=== PATIENT | male | born 1965 | race Caucasian/White ===

== ENCOUNTER 2021-11-08 23:05 | Inpatient (IN) | payer BC ==
[2021-11-08 23:32] LABS: #Lymphocytes 1.3 thou/uL (1.20-3.40); #Monocytes 0.7 thou/uL (0.11-0.59); #Neutrophils 5.9 thou/uL (1.40-6.50); %Eosinophils 0.2 % (0.0-10.0); %Lymphocytes 16.4 % (21.0-51.0); %Monocytes 8.9 % (0.0-10.0); %Neutrophils 74.5 % (42.0-75.0); Hemoglobin 17.7 g/dL (14.0-18.0); Mean Corpuscular HGB CONC 35.7 g/dL (32.0-36.0); Mean Corpuscular Hemoglobin 31.4 pg (27.0-31.0); Mean Corpuscular Volume 87.8 fL (78.0-98.0); Mean Platelet Volume 6.9 fL (7.4-10.4); Platelet Count 185 thou/uL (130-400); RBC Distribution Width 11.9 % (11.5-14.5); Red Blood Cell (RBC) Count 5.63 mill/uL (4.70-6.10)
[2021-11-08] MEDS ORDERED: Adenosine 6 MG/2 ML VIAL ONE (23:46)
[2021-11-08] MEDS ORDERED: Metoprolol Tartrate 25 MG TAB ONE (23:54)
[2021-11-08 23:57] LABS: ALT (SGPT) 21 U/L (8-55); AST (SGOT) 21 U/L (5-34); Albumin 4.6 g/dL (3.5-5.0); Alkaline Phosphatase 73 U/L (40-110); Anion Gap 14 mmol/L (10-20); BUN (Urea Nitrogen) 19 mg/dL (8.4-25.7); Bilirubin, Total 0.7 mg/dL (0.2-1.2); Calc. Creatinine Clearance 0 mL/min (70-130); Calcium 10.2 mg/dL (7.8-10.44); Carbon Dioxide 22 mmol/L (22-29); Chloride 108 mmol/L (98-107); Globulin 3.2 g/dL (2.4-3.5); Glucose 142 mg/dL (70-105); Lipase 28 U/L (8-78); Magnesium 2.4 mg/dL (1.6-2.6); Potassium 3.9 mmol/L (3.5-5.1); Protein, Total 7.8 g/dL (6.0-8.3); Sodium 140 mmol/L (136-145)
[2021-11-09 00:18] LABS: CKMB 1.8 ng/mL (0-6.6)
[2021-11-09] MEDS ORDERED: Aspirin Chewable 81 MG TAB ONE (00:22)
[2021-11-09 01:13] LABS: SARS-CoV-2 NAA Rapid Test Not Detected (NotDetected)
[2021-11-09] MEDS ORDERED: Acetaminophen 325 MG TAB PO PRN ×2 (02:00→05:14)
[2021-11-09] MEDS ORDERED: Dextrose 5 % And 0.9 % NaCl 1,000 ML IV SCH (02:00)
[2021-11-09 03:19] LABS: Troponin I 0.354 ng/mL (< 0.028)
[2021-11-09] MEDS ORDERED: Ondansetron PF 4 MG/2 ML Vial IVP PRN (05:14)
[2021-11-09] MEDS: Sodium Chloride 0.9% 1,000 ML IV SCH ×2 (05:41→18:38)
[2021-11-09] MEDS ORDERED: Enoxaparin Sodium 100 MG/ML SYRINGE SC SCH (05:45)
[2021-11-09 06:15] LABS: Lactic Acid 0.7 mmol/L (0.5-2.2)
[2021-11-09 06:25] LABS: Bacteria/HPF None Seen HPF (None Seen); Bilirubin Negative (Negative); Blood, Urine Negative (Negative); Clarity Clear (Clear); Glucose, Urine (Dipstick) Normal (Negative); Ketone, Urine Negative (Negative); Leukocyte Negative Leu/uL (Negative); Nitrite Negative (Negative); Protein, Urine (Dipstick) Negative (Neg-Trace); RBC/HPF 0-3 HPF (0-3); Specific Gravity, Urine 1.025 (1.002-1.036); Squamous Epithelial None Seen HPF (0-3); Urobilinogen Normal mg/dL (Less than 2); WBC/HPF 0-3 HPF (0-3); pH, Urine 5.5 (5.0-9.0)
[2021-11-09 06:30] LABS: Urine Culture Reflex No No
[2021-11-09 06:46] LABS: Troponin I 0.414 ng/mL (< 0.028)
[2021-11-09] MEDS ORDERED: Enoxaparin Sodium 40 MG/0.4 ML SYRINGE SC SCH (09:00)
[2021-11-09 10:59] LABS: Anion Gap 12 mmol/L (10-20); BUN (Urea Nitrogen) 14 mg/dL (8.4-25.7); Calc. Creatinine Clearance 119 mL/min (70-130); Calcium 8.9 mg/dL (7.8-10.44); Carbon Dioxide 24 mmol/L (22-29); Chloride 108 mmol/L (98-107); Glucose 90 mg/dL (70-105); Sodium 140 mmol/L (136-145)
[2021-11-09 11:07] LABS: Critical Call Chem Troponin I RESULT DECREASING; Troponin I 0.314 ng/mL (< 0.028)
[2021-11-09] MEDS: Metoprolol Tartrate 25 MG TAB PO SCH ×2 (12:37→20:55)
[2021-11-10 05:39] LABS: Hemoglobin 15.5 g/dL (14.0-18.0); Mean Corpuscular HGB CONC 35.2 g/dL (32.0-36.0); Mean Corpuscular Hemoglobin 31.4 pg (27.0-31.0); Mean Corpuscular Volume 89.2 fL (78.0-98.0); Mean Platelet Volume 6.8 fL (7.4-10.4); Platelet Count 155 thou/uL (130-400); RBC Distribution Width 11.9 % (11.5-14.5); Red Blood Cell (RBC) Count 4.92 mill/uL (4.70-6.10)
[2021-11-10 05:40] LABS: Eosinophils 1 % (0-10); Lymphocytes 29 % (21-51); MDiff Complete? YES; Monocytes 12 % (0-10); Neutrophil 56 % (42-75); Platelet Morphology Comment Appears Adequate; RBC Morphology Normal; Reactive Lymphocytes 2 % (0-10)
[2021-11-10 05:42] LABS: Anion Gap 12 mmol/L (10-20); BUN (Urea Nitrogen) 10 mg/dL (8.4-25.7); Calc. Creatinine Clearance 105 mL/min (70-130); Carbon Dioxide 24 mmol/L (22-29); Cardiac Risk 4.2 (Less than 4.5); Chloride 104 mmol/L (98-107); Cholesterol 137 mg/dl (< 200 Desired); Glucose 100 mg/dL (70-105); HDL Cholesterol 33 mg/dL (>60 Neg Risk); LDL Cholesterol, Calculated 88 mg/dL; Potassium 3.7 mmol/L (3.5-5.1); Sodium 136 mmol/L (136-145); Triglycerides 78 mg/dL (Less than 150)
[2021-11-10] MEDS: Sodium Chloride 0.9% 1,000 ML IV SCH (07:37)
[2021-11-10] MEDS ORDERED: Enoxaparin Sodium 40 MG/0.4 ML SYRINGE SC SCH (09:00)
[2021-11-10] MEDS ORDERED: Isoproterenol 0.2 MG/1 ML AMP ONE (11:34)
[2021-11-10] MEDS: Metoprolol Tartrate 25 MG TAB PO SCH ×2 (13:15→20:08)
[2021-11-10] MEDS ORDERED: Lidocaine 1% (PF) 30 ML VIAL ONE (13:17)
[2021-11-10] MEDS ORDERED: Heparin 10,000 UNITS/ 10 ML VIAL ONE (13:17)
[2021-11-10] MEDS ORDERED: Fentanyl 100 MCG/2 ML VIAL ONE ×2 (14:55→15:18)
[2021-11-10] MEDS ORDERED: Midazolam HCl 2 mg/2 ml Vial ONE ×2 (14:55→15:18)
[2021-11-10] MEDS ORDERED: PHENYLEPHRINE-NS 100 MCG/ML 10 ML SYRINGE ONE (15:21)
[2021-11-10] MEDS ORDERED: Atropine Sulfate 1 mg/1 ml Vial ONE (16:21)
[2021-11-10] MEDS ORDERED: Acetaminophen/Codeine 30-300mg Tablet PO PRN ×2 (17:16→17:17)
[2021-11-10] MEDS ORDERED: Atorvastatin Calcium 20 MG TAB PO SCH (21:00)
[2021-11-10 22:06] VITALS: BP 153/88; TEMP 98.6
== END 2021-11-10 20:55 | disposition home or self-care (01) | DRG 273 ==
LOC: ERS 23:05 → 2NO 11-09 00:31 → OBSVTOIN 11-10 11:30
PROVIDERS: ADMIT Internal Medicine; ATTEND Nurse Practitioner Family
PROC: 02583ZZ Destruction of Conduction Mechanism, Percutaneous Approach (ICD-10-PCS; principal; 2021-11-10)
PROC: 4A023FZ Measurement of Cardiac Rhythm, Percutaneous Approach (ICD-10-PCS; 2021-11-10)
PROC: 4A0234Z Measurement of Cardiac Electrical Activity, Percutaneous Approach (ICD-10-PCS; 2021-11-10)
PROC: 02K83ZZ Map Conduction Mechanism, Percutaneous Approach (ICD-10-PCS; 2021-11-10)
DX: I47.1 Supraventricular tachycardia (principal); I21.A1 Myocardial infarction type 2; N17.9 Acute kidney failure, unspecified; Z20.822 Contact with and (suspected) exposure to COVID-19; I10 Essential (primary) hypertension; I25.10 Atherosclerotic heart disease of native coronary artery without angina pectoris; E78.00 Pure hypercholesterolemia, unspecified; B34.9 Viral infection, unspecified; Z79.899 Other long term (current) drug therapy
CPT/HCPCS: 36415; 71045; 80048; 80053; 80061; 81001; 82553; 83605; 83690; 83735; 83880; 84443; 84484; 85025; 87040; 87804; 93005; 93010; 93306; 93613; 93622; 93623; 93653; 94760; 96372; 99152; 99153; C1730; C1776; G0378; J0153; J0461; J1644; J1650; J2001; J2250; J3010; J7042; J7050; U0002

== ENCOUNTER 2024-12-06 17:47 | Emergency (ER) | payer BC ==
[2024-12-06] MEDS ORDERED: Ketorolac Tromethamine 30 MG (1 mL) VIAL ONE (18:53)
[2024-12-06 19:02] LABS: #Basophils 0.03 10x3/uL (0.0-0.2); #Eosinophils Less than 0.03 10x3/uL (0.0-0.7); %Basophils 0.2 % (0.0-1.0); %Eosinophils 0.1 % (0.0-10.0); %Lymphocytes 3.7 % (21.0-51.0); %Neutrophils 86.3 % (42.0-75.0); Hematocrit 44.5 % (42.0-52.0); Mean Corpuscular Hemoglobin 30.1 pg (27.0-31.0); Mean Corpuscular Volume 83.6 fL (78.0-98.0); Mean Platelet Volume 9.1 fL (7.4-10.4); Platelet Count 152 10x3/uL (130-400); RBC Distribution Width 12.9 % (11.5-14.5); Red Blood Cell (RBC) Count 5.32 mill/uL (4.70-6.10)
[2024-12-06 19:38] LABS: ALT (SGPT) 41 U/L (Less than 45); AST (SGOT) 35 U/L (11-34); Albumin 4.4 g/dL (3.1-4.5); Alkaline Phosphatase 40 U/L (40-110); Anion Gap 17 mmol/L (10-20); BUN (Urea Nitrogen) 15 mg/dL (8.4-25.7); Bilirubin, Total 1.1 mg/dL (0.3-1.2); Calc. Creatinine Clearance 0 mL/min (70-130); Calcium 9.4 mg/dL (7.8-10.44); Carbon Dioxide 19 mmol/L (22-29); Chloride 102 mmol/L (98-107); Estimated GFR 68; Globulin 2.7 g/dL (2.4-3.5); Glucose 136 mg/dL (70-105); Potassium 3.6 mmol/L (3.5-5.1); Protein, Total 7.1 g/dL (6.0-8.3); Sodium 134 mmol/L (136-145)
[2024-12-06 21:06] LABS: Bacteria/HPF None Seen HPF (None Seen); Bilirubin Negative (Negative); Blood, Urine Negative (Negative); CAUTI Indications for Culture Fever or rigors; Clarity Clear (Clear); Glucose, Urine (Dipstick) Normal (Negative); Ketone, Urine Negative (Negative); Leukocyte Negative Leu/uL (Negative); Nitrite Negative (Negative); Protein, Urine (Dipstick) Negative (Neg-Trace); RBC/HPF 0-3 HPF (0-3); Specific Gravity, Urine 1.014 (1.002-1.036); Squamous Epithelial 0-3 HPF (0-3); Urobilinogen Normal mg/dL (Less than 2); pH, Urine 5.5 (5.0-9.0)
[2024-12-06 21:09] LABS: Urine Culture Reflex No No
[2024-12-06] MEDS ORDERED: Ondansetron PF 4 MG/2 ML Vial ONE (23:23)
== END 2024-12-06 23:42 | disposition home or self-care (01) ==
LOC: ERS 17:47
DX: R50.9 Fever, unspecified (principal); I10 Essential (primary) hypertension; Z79.82 Long term (current) use of aspirin; Z79.899 Other long term (current) drug therapy
CPT/HCPCS: 36415; 71045; 80053; 81001; 83605; 84443; 84484; 85025; 87040; 87086; 87428; 93005; 94760; 96374; 96375; J1885; J2405

== ENCOUNTER 2024-12-08 12:31 | Emergency (ER) | payer BC ==
[2024-12-08] MEDS ORDERED: Dexamethasone 10 MG/ML VIAL ONE (15:01)
== END 2024-12-08 15:14 | disposition home or self-care (01) ==
LOC: ERS 12:31
DX: T78.40XA Allergy, unspecified, initial encounter (principal); R21 Rash and other nonspecific skin eruption; I10 Essential (primary) hypertension
CPT/HCPCS: 96372; 99282; J1100

== ENCOUNTER 2025-09-05 20:41 | Emergency (ER) | payer BC ==
[2025-09-05] MEDS ORDERED: Lidocaine 1% PF 5 ML VIAL ONE (21:53)
== END 2025-09-05 23:30 | disposition home or self-care (01) ==
LOC: ERS 20:41
DX: S41.111A Laceration without foreign body of right upper arm, initial encounter (principal); Z23 Encounter for immunization; I10 Essential (primary) hypertension; W10.9XXA Fall (on) (from) unspecified stairs and steps, initial encounter
CPT/HCPCS: 12002; 90471; 90715